=== PATIENT | female | born 1980 | race Caucasian/White ===

== ENCOUNTER 2022-08-11 09:31 | Emergency (ER) | payer BC ==
[2022-08-11] MEDS ORDERED: Sodium Chloride 0.9% 10 ML Syringe FLUSH PRN (10:01)
== END 2022-08-11 12:27 | disposition home or self-care (01) ==
LOC: JD.ED 09:31
DX: M54.41 Lumbago with sciatica, right side (principal); R10.31 Right lower quadrant pain; Z86.16 Personal history of COVID-19; Z88.2 Allergy status to sulfonamides
CPT/HCPCS: 36415; 74176; 74176-26; 80053; 81001; 81025; 83690; 85025; 99283; 99284